=== PATIENT | female | born 1930 | race Caucasian/White ===

== ENCOUNTER 2016-08-01 09:24 | Emergency (ER) | payer MEDICARE ==
--- NOTE | ~2016-08-01 | CR169 ---
[facility] A Service of [facility] RADIOLOGY TEXT RESULTS PATIENT: VITA SHUKLA LOCATION: [facility] : 30 UNIT #: [id number] AGE: [address]: Jose Rees MD SEX: F ORDER DR: [id number] [facility] [address] [place], [place] [address] [id number] E MR#: [id number] Acc #: [id number] NAME: VITA SHUKLA : 1930 SEX: F STUDY DATE/TIME: 08/01/2016 11:31 UNIT: [facility] ROOM: STUDY DESCRIPTION: CR Knee 2 Views Lt Attending Physician: Jose Rees M.D. Ordering Physician: Jose Rees M.D. Primary Care Physician: Gustavo Garcia M.D. MEDICAL IMAGING REPORT This report is preliminary unless electronic signature is present EXAM Left knee 2 views, 08/01/2016 11:31 hours HISTORY Patient fell this morning complaining of bilateral knee pain and pelvic pain. COMPARISON Left knee film, 01/08/2012 FINDINGS AP and lateral views of the knee demonstrate a small suprapatellar bursa effusion with no lipohemarthrosis. The bones are osteopenic. There is a distal aspect of an intramedullary martina imaged with a single transverse screw. The distal tip courses very close to the anterior cortical surface on the lateral projection but the cortex appears intact. There is tricompartmental degenerative change in the knee similar to prior study. No fracture seen. IMPRESSION 1. Small suprapatellar bursa effusion without lipohemarthrosis or fracture. 2. Advanced tricompartmental degenerative changes similar to 01/08/2012, worst in the patellofemoral and medial compartments. 3. Note is made of an intramedullary martina in the femur with a single distal transverse screw. The distal tip of the martina courses very close to the anterior cortex of the distal femoral metaphysis but the cortex appears intact. Dictated by... Sigrid Burns M.D. THIS IS AN ELECTRONICALLY VERIFIED REPORT [facility] A Service of [facility] RADIOLOGY TEXT RESULTS PATIENT: VITA SHUKLA LOCATION: [facility] #: [id number] : 30 UNIT #: [id number] AGE: [address]: Jose Rees MD SEX: F ORDER DR: Sigrid Burns M.D. at 08/02/2016 9:25 AM Case TD: 08/01/2016 15:20 JOB #: [id number] MEDICAL IMAGING REPORT Page 1 of 1 COPY
--- NOTE | ~2016-08-01 | CR206 ---
[facility] A Service of [facility] RADIOLOGY TEXT RESULTS PATIENT: VITA SHUKLA LOCATION: [facility] : 30 UNIT #: [id number] AGE: [address]: Jose Rees MD SEX: F ORDER DR: [id number] [facility] [address] [place], [place] [address] [id number] E MR#: [id number] Acc #: [id number] NAME: VITA SHUKLA : 1930 SEX: F STUDY DATE/TIME: 08/01/2016 11:35 UNIT: [facility] ROOM: STUDY DESCRIPTION: CR Pelvis 1 or 2 Views Attending Physician: Jose Rees M.D. Ordering Physician: Jose Rees M.D. Primary Care Physician: Gustavo Garcia M.D. MEDICAL IMAGING REPORT This report is preliminary unless electronic signature is present EXAM Pelvis, 1-view, 08/01/16, 1135 hours. CLINICAL HISTORY Patient fell this morning with pelvic pain and bilateral knee pain. History of previous fracture with ORIF left hip. COMPARISON 01/09/12 FINDINGS Single AP view of the pelvis demonstrates a compression screw at the right proximal femur with intramedullary martina. Previous fracture is healed. The bones are osteopenic. There is slight irregularity at the left inferior ramus laterally, which has a somewhat similar appearance on film of 01/10/12, and is felt not to represent an acute fracture. The degree of osteopenia lowers the sensitivity for fracture. IMPRESSION Osteopenia with hardware at the left hip. No definite acute fracture seen. There is some irregularity of the inferior ramus on the left which I believe is similar in appearance to the film of 01/10/12. A subtle nondisplaced fracture cannot be completely excluded, but is not favored. Dictated by... Sigrid Burns M.D. THIS IS AN ELECTRONICALLY VERIFIED REPORT Sigrid Burns M.D. at 08/02/2016 9:25 AM MACIEL/stacey TD: 08/01/2016 15:28 [facility] A Service of [facility] RADIOLOGY TEXT RESULTS PATIENT: VITA SHUKLA LOCATION: [facility] #: [id number] : 30 UNIT #: [id number] AGE: [address]: Jose Rees MD SEX: F ORDER DR: JOB #: [id number] MEDICAL IMAGING REPORT Page 1 of 1 COPY
--- NOTE | ~2016-08-01 | CR170 ---
[facility] A Service of [facility] RADIOLOGY TEXT RESULTS PATIENT: VITA SHUKLA LOCATION: [facility] : 30 UNIT #: [id number] AGE: [address]: Jose Rees MD SEX: F ORDER DR: [id number] [facility] [address] [place], [place] [address] [id number] E MR#: [id number] Acc #: [id number] NAME: VITA SHUKLA : 1930 SEX: F STUDY DATE/TIME: 08/01/2016 11:32 UNIT: [facility] ROOM: STUDY DESCRIPTION: CR Knee 2 Views Rt Attending Physician: Jose Rees M.D. Ordering Physician: Jose Rees M.D. Primary Care Physician: Gustavo Garcia M.D. MEDICAL IMAGING REPORT This report is preliminary unless electronic signature is present EXAM Right knee 08/01/2016 INDICATIONS Right knee pain beginning this morning after fall. FINDINGS AP and lateral views of the right knee were obtained. There is narrowing of medial joint compartment. There is no fracture or effusion. The other bones are normal. IMPRESSION Mild degenerative change medial joint compartment. Otherwise normal. Dictated by... Jet Geller M.D. THIS IS AN ELECTRONICALLY VERIFIED REPORT Jet Geller M.D. at 08/01/2016 3:57 PM Eleuterio TD: 08/01/2016 15:20 JOB #: [id number] MEDICAL IMAGING REPORT Page 1 of 1 COPY
[~2016-08-01 09:24] MED LIST: BENAZEPRIL PO; BENICAR HCT 40-1 TAB PO; CELEBREX PO; GLUCOTROL PO; LOSARTAN POTASS50 MG PO; MACROBID 100 M100 MG PO; MEVACOR PO
[2016-08-01 12:19] LABS: BUN/CREATININE RATIO 12.85; CALCIUM SERUM 9.1 mg/dL (8.4-10.2); CREATININE SERUM 0.7 mg/dL (0.6-1.4)
[2016-08-01 12:22] LABS: POTASSIUM 2.9 mmol/L (3.5-5.1)
== END 2016-08-01 13:35 | disposition home or self-care (01) ==
LOC: CED 09:24
PROVIDERS: Emergency Medicine
DX: S80.02XA Contusion of left knee, initial encounter (principal); E87.6 Hypokalemia; E11.9 Type 2 diabetes mellitus without complications; I10 Essential (primary) hypertension; Z88.2 Allergy status to sulfonamides; Z88.5 Allergy status to narcotic agent; Z88.6 Allergy status to analgesic agent; Z88.8 Allergy status to other drugs, medicaments and biological substances; Z79.899 Other long term (current) drug therapy; W18.30XA Fall on same level, unspecified, initial encounter; Y92.009 Unspecified place in unspecified non-institutional (private) residence as the place of occurrence of the external cause
CPT/HCPCS: 36415; 72170; 73560; 80048; 82550; 96360; 99284

== ENCOUNTER 2016-10-26 06:41 | Emergency (ER) | payer MEDICARE ==
[~2016-10-26] VITALS: Ht 157.5 cm; Wt 45.8 kg
--- NOTE | ~2016-10-26 | CR72 ---
[facility] A Service of [facility] RADIOLOGY TEXT RESULTS PATIENT: VITA SHUKLA LOCATION: [facility] : 30 UNIT #: [id number] AGE: [address]: René Armendariz MD SEX: F ORDER DR: [id number] [facility] [address] [place], [place] [address] [id number] E MR#: [id number] Acc #: [id number] NAME: VITA SHUKLA : 1930 SEX: F STUDY DATE/TIME: 10/26/2016 7:31 UNIT: [facility] ROOM: STUDY DESCRIPTION: CR Chest Single View Portable Attending Physician: René Armendariz M.D. Ordering Physician: René Armendariz M.D. Primary Care Physician: Gustavo Garcia M.D. MEDICAL IMAGING REPORT This report is preliminary unless electronic signature is present EXAM Portable chest x-ray, 10/26/2016. HISTORY Short of air. 1-2 days. Confusion, short of air, congestion, gallbladder. TECHNIQUE AP radiograph of the chest is presented. COMPARISON 03/10/2011 FINDINGS Mild cardiac enlargement. Marked mitral annular calcification. Lungs moderately well inflated. Pulmonary vascular mildly prominent but distinct. Correlate with any clinical indications of mild vascular congestion. There is no mahesh pulmonary edema. No indication of pneumonia, pleural effusion, pneumothorax, or a suspicious nodule. There is healed granulomatous disease, unchanged. Bony structures show no acute abnormality. There is [id number] thoracolumbar scoliosis, more pronounced than on prior examination. There has been interval loss of vertebral body height in lower thoracic vertebral bodies, probably the T10 and T11 vertebral bodies but exact number is somewhat unclear. I would favor that these compression deformities are chronic in time course. There is no clearly acute bony abnormality. Dictated by... Moisés Easley M.D. THIS IS AN ELECTRONICALLY VERIFIED REPORT [facility] A Service of [facility] RADIOLOGY TEXT RESULTS PATIENT: VITA SHUKLA LOCATION: [facility] : 30 UNIT #: [id number] AGE: [address]: René Armendariz MD SEX: F ORDER DR: Moisés Easley M.D. at 10/29/2016 12:58 PM VIC/alexia TD: 10/26/2016 16:13 JOB #: [id number] MEDICAL IMAGING REPORT Page 1 of 1 COPY
--- NOTE | ~2016-10-26 | EKG ---
PATIENT: VITA SHUKLA UNIT #: [id number] Ventricular Rate: 82 BPM Atrial Rate: 82 BPM P-R Interval: 132 ms QRS Duration: 88 ms Q-T Interval: 424 ms QTC Calculation(Bezet): 495 ms P Browning: 59 degrees Calculated R Browning: 12 degrees Calculated T Browning: 28 degrees Diagnosis Line: Diagnosis Line: Normal sinus rhythm with sinus arrhythmia Diagnosis Line: Prolonged QT Diagnosis Line: Abnormal ECG Diagnosis Line: When compared with ECG of 09-JAN-2012 02:03, Diagnosis Line: Criteria for Septal infarct are no longer Present Diagnosis Line: Confirmed by NALDO SULTANA MD ([id number]) on 10/26/2016 Diagnosis Line: 5:20:49 PM INTERPRETING MD: KAYY BRAUN
--- NOTE | ~2016-10-26 | CT71 ---
[facility] A Service of [facility] RADIOLOGY TEXT RESULTS PATIENT: VITA SHUKLA LOCATION: [facility] : 30 UNIT #: [id number] AGE: [address]: René Armendariz MD SEX: F ORDER DR: [id number] [facility] [address] [place], [place] [address] [id number] E MR#: [id number] Acc #: [id number] NAME: VITA SHUKLA : 1930 SEX: F STUDY DATE/TIME: 10/26/2016 7:57 UNIT: [facility] ROOM: STUDY DESCRIPTION: CT Head Wo Contrast Attending Physician: René Armendariz M.D. Ordering Physician: Rneé Armendariz M.D. Primary Care Physician: Gustavo Garcia M.D. MEDICAL IMAGING REPORT This report is preliminary unless electronic signature is present EXAM Unenhanced head CT 10/26/2016 PROCEDURE Axial unenhanced head CT. This CT exam was performed with one or more of the following radiation dose reduction techniques: Automatic exposure control, adjustment of mA and/or kV according to patient size, and iterative reconstruction. COMPARISON Prior head CT 01/09/2012. HISTORY Confusion for 1 day. FINDINGS There is no intracranial hemorrhage or mass and while there is volume loss, there is no hydrocephalus or extraaxial fluid collection. Moderately advanced nonspecific white matter changes are seen, not significantly changed since the study of 01/09/2012. The extracranial soft tissues show no acute abnormality and the skull base and calvarium are unremarkable. IMPRESSION Chronic small vessel change and volume loss but no acute-appearing abnormality and no significant interval change since prior head CT of 01/09/2012. Dictated by... Juan Miguel Estrada M.D. THIS IS AN ELECTRONICALLY VERIFIED REPORT [facility] A Service [facility] RADIOLOGY TEXT RESULTS PATIENT: VITA SHULKA LOCATION: [facility] : 30 UNIT #: [id number] AGE: [address]: René Armendariz MD SEX: F ORDER DR: Juan Miguel Estrada M.D. at 11/02/2016 4:10 PM ELY/bill TD: 10/26/2016 16:12 JOB #: [id number] MEDICAL IMAGING REPORT Page 1 of 1 COPY
[2016-10-26] MEDS ORDERED: LASIX20 MG PO (07:38)
[2016-10-26] MEDS ORDERED: NAMZARIC 28 MG1 EACH PO (07:38)
[2016-10-26 07:40] LABS: BASOPHIL# 0.1 X10e3 (0-0.3); BASOPHIL% 0.7 % (0-2.5); DIFF IND NO; EOSINOPHIL# 0.2 X10e3 (0-0.7); HEMATOCRIT 36.7 % (35.0-45.0); HEMOGLOBIN 12.3 gm/dL (12.0-16.0); LYMPHOCYTE# 1.7 X10e3 (1.0-3.5); LYMPHOCYTE% 20.2 % (17.0-45.0); MEAN CELL VOLUME 88.1 FL (83-96); MEAN CORPUSCULAR HEMOGLOBIN 29.4 PG (28-34); MEAN CORPUSCULAR HGB CONC 33.4 g/dL (30-36); MEAN PLATELET VOLUME 9.2 FL (6.5-11.5); MONOCYTE# 0.7 X10e3 (0-1.0); MONOCYTE% 8.9 % (3.0-12.0); NEUTROPHIL# 5.7 X10e3 (1.5-7.1); NEUTROPHIL% 68.2 % (40-75); PLATELET COUNT 222 X10e3 (140-420); RED BLOOD COUNT 4.16 X10e (3.90-5.30); RED CELL DISTRIBUTION WIDTH 13.5 % (11.0-15.5); WHITE BLOOD COUNT 8.3 X10e3 (4.0-10.5)
[2016-10-26] MEDS ORDERED: VOLTAREN75 MG PO (07:44)
[2016-10-26 07:49] LABS: INR 1.1; PARTIAL THROMBOPLASTIN TIME 27.6 SECONDS (23.5-31.3); PROTHROMBIN TIME (PATIENT) 11.5 SECONDS (10.0-11.7)
[2016-10-26 07:52] LABS: ARTERIAL BLD GAS O2 SATURATION 93.5 % (90.0-100.0); ARTERIAL BLOOD GAS ALLEN TEST NORMAL; ARTERIAL BLOOD GAS ART SITE RIGHT RADIAL; ARTERIAL BLOOD GAS CARBOXY HB 0.7 %sat (0.0-9.0); ARTERIAL BLOOD GAS DELIVERY ROOM AIR; ARTERIAL BLOOD GAS HCO3 30.9 mmol/L; ARTERIAL BLOOD GAS MET HB 0.6 %sat (0.0-2.0); ARTERIAL BLOOD GAS PCO2 44.9 mmHg (35.0-45.0); ARTERIAL BLOOD GAS PO2 68.9 mmHg (80.0-100); ARTERIAL BLOOD GAS pH 7.447 (7.350-7.450); ARTERIAL DRAW? YES
[2016-10-26 08:23] LABS: ALBUMIN SERUM 3.8 g/dL (3.5-5.0); BILIRUBIN, DIRECT 0.1 mg/dL (0.0-0.2); BILIRUBIN,INDIRECT 0.6 mg/dL (0.0-0.9); BILIRUBIN,TOTAL 0.7 mg/dL (0.2-2.0); CALCIUM SERUM 9.1 mg/dL (8.4-10.2); CREATININE SERUM 0.8 mg/dL (0.6-1.4); GLOM FILT RATE Estimated 66.8 mL/min (>60); POTASSIUM 3.4 mmol/L (3.5-5.1); PROTEIN TOTAL SERUM 6.7 g/dL (6.0-8.3)
[2016-10-26 08:59] LABS: URINE SOURCE CLEAN CATCH
[2016-10-26 09:09] LABS: URINE APPEARANCE CLEAR; URINE BILIRUBIN NEG (NEG); URINE BLOOD NEG (NEG); URINE COLOR YELLOW; URINE GLUCOSE NEG (NEG); URINE KETONE TRACE (NEG); URINE LEUKOCYTE ESTERASE 3+ (NEG); URINE NITRATE POS (NEG); URINE PH 6.5 (5-8); URINE PROTEIN NEG (NEG); URINE SPECIFIC GRAVITY 1.011 (1.003-1.035)
[2016-10-26 09:12] LABS: CULTURE INDICATED? YES; URINE BACTERIA AUWI 3+ (NEGATIVE); URINE SQUAMOUS EPITHELIAL CELL NONE SEEN /[HPF]; UWBCS1 AUWI 25-50 (0-5)
[2016-10-26 09:39] LABS: AMPHETAMINE NEG (NEG); BARBITURATES NEG (NEG); BENZODIAZEPINES NEG (NEG); COCAINE NEG (NEG); MARIJUANA NEG (NEG); OPIATES NEG (NEG); TRICYCLIC ANTIDEPRESSANTS NEG (NEG); U METHADONE NEG (NEG)
== END 2016-10-26 10:50 | disposition home or self-care (01) ==
LOC: CED 06:41
PROVIDERS: Emergency Medicine
DX: F03.90 Unspecified dementia, unspecified severity, without behavioral disturbance, psychotic disturbance, mood disturbance, and anxiety (principal); N39.0 Urinary tract infection, site not specified; E11.9 Type 2 diabetes mellitus without complications; I10 Essential (primary) hypertension; Z88.8 Allergy status to other drugs, medicaments and biological substances; Z88.2 Allergy status to sulfonamides; Z88.5 Allergy status to narcotic agent
CPT/HCPCS: 36415; 36600; 70450; 71010; 80048; 80076; 80307; 81003; 82140; 82803; 83605; 85025; 85610; 85730; 87040; 87086; 87088; 87186; 93005; 99285